=== PATIENT | male | born 1980 | race Caucasian/White ===

== ENCOUNTER 2021-03-05 06:21 | Inpatient (IN) ==
--- NOTE | 2021-03-04 12:17 | Anesthesiology Consultation ---
Date of Service March 04, 2021 Assessment & Plan (1) Encounter for pre-operative examination: Chart Review Chart Review: Acceptable Risk for Surgery and Patient NOT seen in Pre Admission Testing Per nursing assessment 03/04/21, patient denies any recent travel. No known Covid positive contacts or Covid related symptoms. No known Covid infection in the past 90 days. Covid test 03/03/21= negative History Surgery Operation Date: 03/05/21 07:45 Proposed Procedures p C5 Corpectomy, Spinal Cord Monitoring - Yang Vazquez DO Height/Weight Height: 5 ft 6 in Weight: 70.307 kg Allergies Allergy/AdvReac Type Severity Reaction Status Date / Time No Known Allergies Allergy Unverified 03/04/21 10:48 Medications Home Medications Medication Instructions Recorded Confirmed Last Taken calcium carbonate [Tums] 200 mg PO BID PRN 03/04/21 03/04/21 Unknown cholecalciferol (vitamin D3) 250 mcg PO QAM 03/04/21 03/04/21 Unknown [Vitamin D3] cyclobenzaprine 5 mg PO TID PRN 03/04/21 03/04/21 Unknown gabapentin 300 mg PO QID 03/04/21 03/04/21 Unknown naproxen 500 mg PO BID PRN 03/04/21 03/04/21 Unknown tadalafil 5 mg PO DAILY PRN 03/04/21 03/04/21 Unknown Past Medical History Medical History Acid reflux ADHD Anxiety due to invasive procedure Cervical disc disorder with radiculopathy Degenerative disc disease History of kidney stones History of migraine Spinal stenosis Transverse myelitis Urinary urgency Past Family History Family History Other Adopted Past Surgical History Surgical History History of carpal tunnel surgery of right wrist History of right inguinal hernia repair History of wisdom tooth extraction Social History Smoking Status: Current every day smoker tobacco type: e-cigarettes Do You Dip or Chew Tobacco: No Smoking End Date: quit cigs 3-4 years ago Hx Alcohol Use: Yes Alcohol type: beer alcohol intake frequency: holidays/special occasions only Hx Substance Use: Yes substance use type: marijuana Substance Use Type Other:: medical marijuana Last Used Substance: Hours (ago) Last Used Substance Other:: smokes mult x daily Lab Results Anesthesia Preop Results Results Anesthesia Widget: WBC 6.87 K/uL (4.8-10.8) 03/03/21 Hgb 14.9 g/dL (14.0-18.0) 03/03/21 Hct 42.2 % (42-52) 03/03/21 Plt 252 K/uL (130-400) 03/03/21 Na 139 mmol/L (136-145) 03/03/21 K 4.1 mmol/L (3.5-5.1) 03/03/21 Cl 108 mmol/L (98-107) H 03/03/21 CO2 26 mmol/L (21-32) 03/03/21 BUN 15 mg/dl (7-18) 03/03/21 Creat 0.90 mg/dl (0.6-1.4) 03/03/21 Glucose Level 105 mg/dl (70-99) H 03/03/21 PT 9.8 Seconds (9.0-12.0) 03/03/21 INR 1.0 (0.9-1.1) 03/03/21 Urine Color Yellow 03/03/21 Urine Appearance Clear (Clear) 03/03/21 Urine pH 5.0 (4.5-7.5) 03/03/21 Urine Specific [place] 1.024 (1.000-1.030) 03/03/21 Urine Protein Negative (Negative) 03/03/21 Urine Glucose (UA) Negative (Negative) 03/03/21 Urine Ketones Negative (Negative) 03/03/21 Urine Blood Trace (Negative) H 03/03/21 Urine Nitrite Negative (Negative) 03/03/21 Urine Bilirubin Negative (Negative) 03/03/21 Urine Urobilinogen Negative (Negative) 03/03/21 Urine Leukocyte Esterase Negative (Negative) 03/03/21 Urine WBC (Auto) 0 /hpf (0-5) 03/03/21 Urine RBC (Auto) 0-4 /hpf (0-4) 03/03/21 Urine Hyaline Casts (Auto) 0 /lpf (0-5) 03/03/21 Urine Epithelial Cells (Auto) 0-5 /lpf (0-5) 03/03/21 Urine Bacteria (Auto) Negative (Negative) 03/03/21 Testing Electrocardiogram Date: 03/03/21 Findings: + NSR @ (74bpm) Normal EKG. Chest X-Ray Date: 03/03/21 Findings: + NAD
[~2021-03-05 06:21] MED LIST: ACETAMINOPHEN 500 MG TAB PO SCH; CeleBREX 200 MG CAP PO SCH; GABAPENTIN 900 MG DOSE PO SCH; LR 15ML/HR IV SCH; ceFAZolin 1000MG 1,000 MG/7.5 ML SYR IV SCH
[2021-03-05] MEDS ORDERED: ONDANSETRON INJ 2 MG/ML 2 ML VIAL ONE (06:55)
[2021-03-05] MEDS ORDERED: fentaNYL citrate 100 MCG/2 ML VIAL ONE (06:55)
[2021-03-05] MEDS ORDERED: GLYCOPYRROLATE 0.2 MG/ML VIAL ONE (06:55)
[2021-03-05] MEDS ORDERED: NEOSTIGMINE METHYLSULFATE 1 MG/ML 10ML VIAL ONE (06:55)
[2021-03-05] MEDS ORDERED: DEXAMETHASONE SOD INJ 4 MG/ML VIAL ONE (06:55)
[2021-03-05] MEDS ORDERED: PROPOFOL IV EMULSION 10 MG/ML 20 ML VIAL IV ONE ×2 (06:55→07:32)
[2021-03-05] MEDS ORDERED: LIDOCAINE HCL 2% 2 ML VIAL/AMP(20MG/ML) INFIL ONE (06:55)
[2021-03-05] MEDS ORDERED: MIDAZOLAM HCL 1 MG/ML 2ML VIAL ONE (06:55)
[2021-03-05] MEDS ORDERED: ROCURONIUM BROMIDE 10 MG/ML 5 ML VIAL IV ONE (06:55)
[2021-03-05] MEDS ORDERED: HYDROmorphone INJ 2 MG/ML SYR/VIAL ONE (07:01)
--- NOTE | 2021-03-05 07:33 | History & Physical Bridge Note ---
Date of Service March 05, 2021 History & Physical Bridge Note I have examined the patient, reviewed the History & Physical and in the interval since the performance of the History & Physical I have noted the following changes of clinical significance: no changes noted
--- NOTE | 2021-03-05 07:34 | History & Physical Report ---
Date of Service March 05, 2021 Assessment & Plan (1) Myelopathy concurrent with and due to spinal stenosis of cervical region: Admission and Anticipated Discharge Date Admission Date: C5 corpectomy History of Present Illness Chief Complaint: Neck and arm pain and weakness Primary Care Provider: Rashad Jasso MD This is a 40-year-old male who presents with progressive cervical myelopathy and is here for surgical invention. Allergies Allergy/AdvReac Type Severity Reaction Status Date / Time No Known Allergies Allergy Verified 03/05/21 06:31 Home Medications Medication Instructions Recorded Confirmed Type calcium carbonate [Tums] 200 mg PO BID PRN 03/04/21 03/05/21 History cholecalciferol (vitamin D3) 250 mcg PO QAM 03/04/21 03/05/21 History [Vitamin D3] cyclobenzaprine 5 mg PO TID PRN 03/04/21 03/05/21 History gabapentin 300 mg PO QID 03/04/21 03/05/21 History naproxen 500 mg PO BID PRN 03/04/21 03/05/21 History tadalafil 5 mg PO DAILY PRN 03/04/21 03/05/21 History Past Med/Surg History Medical History Acid reflux ADHD Anxiety due to invasive procedure Cervical disc disorder with radiculopathy Degenerative disc disease History of kidney stones History of migraine Spinal stenosis Transverse myelitis Urinary urgency Surgical History History of carpal tunnel surgery of right wrist History of right inguinal hernia repair History of wisdom tooth extraction Family History Other Adopted Social History Smoking Status: Current every day smoker Smoking End Date: quit cigs 3-4 years ago; Second Hand Exposure: Yes (hx); Do You Dip or Chew Tobacco: No; Tobacco Cessation Education Requested by Patient: No Hx Alcohol Use: Yes Alcohol type: beer Hx Substance Use: Yes Last Used Substance: Hours (ago) Last Used Substance Other:: smokes mult x daily Substance Use Type Other:: medical marijuana Preferred Language: Italian Communication Ability: Effective Geographic Information Systems Analyst Required: No Beliefs That Will Affect Care: None Current Living Situation: Significant Other Feels Safe at Home: Yes Safety Concerns: Feels Safe At This Time Assistive Devices: None Physical Exam Physical Exam: Patient is alert and oriented Heart regular in rhythm Lungs clear to auscultation Results & Data ([facility]) Vital Signs (Past 12 Hours) Vital Signs Temp Pulse Resp BP Pulse Ox 03/05/21 06:30 36.9 C 78 18 109/81 98
[2021-03-05] MEDS ORDERED: BACITRACIN INJ 50,000 UNIT VIAL ONE (07:36)
[2021-03-05] MEDS ORDERED: HYDROmorphone INJ 1 MG/ML SYRINGE IV PRN ×2 (08:46→11:32)
[2021-03-05] MEDS ORDERED: ePHEDrine sulfate 50 MG/ML AMP IV PRN (08:46)
[2021-03-05] MEDS ORDERED: ATROPINE SULFATE 0.1 MG/ML 10ML SYR IV PRN (08:46)
[2021-03-05] MEDS ORDERED: ONDANSETRON INJ 2 MG/ML 2 ML VIAL IV PRN ×2 (08:46→11:32)
[2021-03-05] MEDS ORDERED: FLOSEAL HEMOSTATIC MATRIX 10ML TOP ONE (09:42)
--- NOTE | 2021-03-05 09:46 | Operative Report ---
Post Operative Report Pre & Post Diagnosis Operation Date: 03/05/21 07:45 Pre-Op Diagnosis: Cervical spinal stenosis with nucleus pulposus and myeloradiculopathy Post-Op Diagnosis: Same I identified the patient and participated in the time-out.: Yes Procedure Operation Date: 03/05/21 07:45 Actual Procedures #1 anterior cervical corpectomy of C5 including bilateral foraminotomies. #2 anterior cervical arthrodesis C4-C6. #3 placement of 21 mm peek cage C4-C6. #4 placement locally harvested morselized autograft combined with I factor in the interbody cage. #5 application 5 complete and screws from C4-C6. Surgeon Yang Vazquez, Cash Sales Audit Clerk Chava Elias Estimated Blood Loss 20 Findings Consistent with Post-Op Diagnosis Specimens None Indications This is a 40-year-old male who presents with marked decline in status evidence of myeloradiculopathy is here for urgent decompression and fusion. Description of Procedure Patient was met with identified informed consent obtained. Patient was then taken to the operative suite underwent a patient placed in supine position injectable head An headline writer. All bony prominences well-padded eyes inspected to ensure no external pressure placed upon the bed at this point the anterior cervical spine was prepped and draped in normal sterile fashion. The assistance of fluoroscopy identified the C5 vertebral body and a transverse incision was placed along the right anterior aspect of the cervical spine overlying this region. Sharp dissection with the assistance of bipolar electrocautery was performed down to and exposing anterior cervical spine from C4-C6. Self-retaining retractors placed. I then performed a complete discectomy of C4-C5 and C5-C6 out to the uncovertebral joints bilaterally. [place] is distracting pins were then placed in C4 and C6 to distract across the C5 vertebral body. It was then removed in its entirety including removal of all posterior annular fibers longitudinal ligament bilateral foraminotomies performed. Obvious mass amount of disc material were noted to be within the can al. After complete removal and decompression endplates were burred to subcortical being bone and a 21 mm peek cage filled with locally harvested morselized autograft and I factor tapped in position. Distracting apparatus was removed. A 5 complete screws applied with the assistance of fluoroscopy. The incision was then copiously irrigated explored to ensure no damage to surrounding structures or remaining bleeding. 10 round KP drain inserted. It was then closed with 2 Vicryl in a fashion of 4 Monocryl for final skin closure. Steri-Strip sterile dressings placed. Patient waken taken to PACU stable condition. Please note spinal cord monitoring was utilized at the procedure no changes noted. Lastly Chava Elias was present at the entire surgery involved the patient positioning complex portions of the surgery and final skin closure. I attest to the content of the Intraoperative Record and any orders documented therein. Any exceptions are noted below.
--- NOTE | 2021-03-05 10:06 | Fluoroscopy Report ---
FL cervical 2-3V CLINICAL HISTORY: C5 CORPECTOMY COMPARISON STUDY: None. FLUOROSCOPY TIME: 9 seconds. FLUOROSCOPIC IMAGES: 2 FINDINGS: Fluoroscopy was provided during C5 corpectomy and C4-C6 anterior discectomy and fusion. Ellie gical drain is in place. Endotracheal tube is partially imaged. IMPRESSION: Fluoroscopy provided during C5 corpectomy and C4-C6 anterior discectomy and fusion. ACT 112: Negative or not required by law. Electronically signed by: Alex Gerber M.D. 03/05/2021 10:05 AM
[2021-03-05] MEDS: fentaNYL citrate 100 MCG/2 ML VIAL IV PRN ×2 (10:31→10:45)
[2021-03-05] MEDS ORDERED: dexAMETHasone 8 MG in SYRINGE 0 ML IV PRN (11:32)
[2021-03-05] MEDS ORDERED: ACETAMINOPHEN 1,000 MG/100 ML VIAL IV PRN (11:32)
[2021-03-05] MEDS ORDERED: HYDROmorphone INJ 0.5 MG/0.5 ML SYR IV PRN (11:32)
[2021-03-05] MEDS ORDERED: NALOXONE HCL 0.4 MG/1 ML VIAL/CARP IV PRN (11:32)
[2021-03-05] MEDS ORDERED: traMADol HCL 50 MG TABLET PO PRN (11:32)
[2021-03-05] MEDS ORDERED: DO NOT ADMINISTER FLU VACCINE PRN (11:32)
[2021-03-05] MEDS ORDERED: MAGNESIUM HYDROXIDE SUSP 30 ML UDC PO PRN (11:32)
[2021-03-05] MEDS ORDERED: PROMETHAZINE HCL 12.5 MG in SODIUM CHLORIDE 0.9% 50 ML IV PRN (11:32)
[2021-03-05] MEDS ORDERED: DO NOT ADMINISTER PNEUMOCOCCAL VACCINE PRN (11:32)
[2021-03-05] MEDS ORDERED: ACETAMINOPHEN 500 MG TAB PO PRN (11:32)
[2021-03-05] MEDS ORDERED: FAMOTIDINE 20 MG TAB PO PRN (11:32)
[2021-03-05] MEDS ORDERED: ONDANSETRON 4 MG OD TAB PO PRN (11:32)
[2021-03-05] MEDS ORDERED: METOCLOPRAMIDE HCL INJ 5 MG/ML 2 ML VIAL IV PRN (11:32)
[2021-03-05] MEDS ORDERED: hydrOXYzine HCl 25 MG TAB PO PRN (11:32)
[2021-03-05] MEDS ORDERED: CYCLOBENZAPRINE HCL 5 MG TAB PO PRN (11:32)
[2021-03-05] MEDS ORDERED: CALCIUM CARBONATE 500 MG CHEWABLE TAB PO PRN (11:32)
[2021-03-05] MEDS ORDERED: ALUMINUM/MAGNESIUM SUSP 30 ML UDC PO PRN (11:32)
[2021-03-05] MEDS ORDERED: LORazepam 0.5 MG/1 ML VIAL IV PRN (11:32)
[2021-03-05] MEDS ORDERED: RACEPINEPHRINE 2.25% NEBU SOLN 0.5 ML VIAL INH PRN (11:32)
[2021-03-05] MEDS ORDERED: SOD PHOSPHATE/SOD BIPHOSPHATE ENEMA 132 ML BTL PR PRN (11:32)
[2021-03-05] MEDS ORDERED: diphenhydrAMINE Capsule 25 MG CAP PO PRN (11:32)
[2021-03-05] MEDS ORDERED: LORazepam 0.5 MG TAB PO PRN (11:32)
--- NOTE | 2021-03-05 12:32 | Anesthesiology Progress Note ---
Date of Service March 05, 2021 Anesthesia Post Procedure Vital Signs Vital Signs: Temp Pulse Pulse Resp BP BP Pulse Ox 03/05/21 11:32 76 16 96 03/05/21 11:05 36.6 C 56 L 12 120/67 95 03/05/21 10:55 56 L 18 117/78 96 03/05/21 10:45 36.3 C L 61 19 121/75 97 03/05/21 10:35 58 L 12 119/78 96 03/05/21 10:25 66 20 125/82 94 03/05/21 10:15 68 18 115/80 95 03/05/21 10:08 36.2 C L 73 16 116/77 96 03/05/21 06:30 36.9 C 78 18 109/81 98 Pain Intensity Posterior Neck: Pain Intensity: 3 Transfer of Care Handoff Completed per policy Notes Mental Status: alert / awake / arousable and participated in evaluation Patient Amnestic to Procedure: Yes Nausea / Vomiting: adequately controlled Pain: adequately controlled Airway Patency, RR, SpO2: stable & adequate BP & HR: stable & adequate Hydration State: stable & adequate Anesthetic Complications: no major complications apparent and Pt Satisfied with anesthetic care
[2021-03-05] MEDS: LACTATED RINGER'S 1,000 ML IV SCH ×2 (12:37→22:21)
[2021-03-05] MEDS: GABAPENTIN 300 MG CAP PO SCH ×3 (12:37→22:22)
[2021-03-05] MEDS: ceFAZolin 1000MG 1,000 MG/7.5 ML SYR IV SCH (15:35)
[2021-03-05] MEDS: oxyCODONE HCL IR 5 MG TAB (IMMEDIATE RELEASE) PO PRN ×2 (17:54→22:21)
[2021-03-05] MEDS ORDERED: DOCUSATE SODIUM/SENNA 50/8.6MG TAB PO SCH (21:00)
[2021-03-06] MEDS: ceFAZolin 1000MG 1,000 MG/7.5 ML SYR IV SCH (00:15)
[2021-03-06] MEDS ORDERED: POLYETHYLENE (MIRALAX) 17 GM PACK PO SCH (06:00)
[2021-03-06] MEDS ORDERED: dexAMETHasone 6 MG in SYRINGE 0 ML IV SCH (09:00)
[2021-03-06] MEDS: GABAPENTIN 300 MG CAP PO SCH (09:10)
--- NOTE | 2021-03-06 10:28 | Discharge Summary ---
Date of Service March 06, 2021 Admission HPI Per Admitting Provider This is a 40-year-old male who presents with progressive cervical myelopathy and is here for surgical invention. Principal Diagnosis Cervical stenosis with myeloradiculopathy Discharge Data Allergies Allergy/AdvReac Type Severity Reaction Status Date / Time No Known Allergies Allergy Verified 03/05/21 06:31 Procedures Performed Operation Date: 03/05/21 07:45 Actual Procedures p C5 Corpectomy, Spinal Cord Monitoring(Not Applicable) - Yang Vazquez DO Ordered Studies 03/05/21 07:45 [place] cervical 2-3V Routine Hospital Course (1) Myelopathy concurrent with and due to spinal stenosis of cervical region: Patient went anterior cervical corpectomy of C5 tolerated well second orthopedic for postop labor postop and running swallowing well no hoarseness. KP drain decreasing probably. Strength markedly improved in bilateral upper and lower extremities. Ambulating halls well. Pain well controlled. Subsequently discharged home. Discharge orders instructions from the chart for further review. Total Time Total Time Spent Total Time Spent (In Minutes): 20 minutes Discharge Plan Discharge Items Patient Disposition: Home - Self-Care Reason For Visit: Disease of Spinal Cord Discharge Diagnosis: Cervical spinal stenosis with myeloradiculopathy Activity: As commented below Non-emergency contact: Primary Care Provider Call non-emergency contact if: you have any medication questions Follow-up/Referrals: Rashad Jasso MD [Primary Care Provider] - Diet: Regular Addtl Attending Provider Instructions: ACTIVITY RECOMMENDATIONS: SELF CARE INSTRUCTIONS AFTER CERVICAL FUSIONS 1. No smoking. Smoking drastically decreases the chance of a solid fusion. 2. No bending, lifting more than 5 pounds, or twisting (roll like a log when turning in bed). 3. You may shower 3 days after surgery. Thoroughly dry wound. Do not soak in the tub. 4. Cervical collar: Must be worn at all times including sleeping. You may remove the brace only to bath, eat and if you are sitting in a recliner. 5. Please walk as much as you can for exercise. Gradually increase the distance that you walk as your endurance increases. SPECIAL CARE INSTRUCTIONS: VERY IMPORTANT TO READ AND REVIEW A. Do not take any anti-inflammatory medications (i.e. Indocin, Advil, Aspirin, Naprosyn, Aleve, Motrin, etc.) as these may inhibit the chance of a solid fusion. Tylenol is okay to take. B. Your surgical incision has been closed with a cosmetic suture under the skin that will dissolve in about 6 weeks. In 14 days, you can use a pair of clean scissors and cut the suture that is left outside of the skin at the ends of your incision. C. Complications are uncommon, but please contact us if you have any signs or symptoms of: 1. wound infection (fever higher than 102.5 degrees F, redness, separation of wound, drainage, or increasing pain from the incision) 2. blood clots in legs (pain, swelling, redness and warmth in legs) 3. urinary tract infection (fever higher than 102.5 degrees, burning upon urination or increased frequency of urination) 4. nerve problems (inability to walk on your toes or heels, numbness, loss of bowel or bladder control) 5. any other symptoms that concern you. D. Please call the office at if you have any concerns or questio ns about your operation or recovery. MANAGING PAIN AFTER SPINAL SURGERY 1. Narcotic medication is intended for short-term use and will be provided for surgical pain. Surgical pain usually lasts for a period of 4-6 weeks. Narcotic medication includes Percocet, Vicodin, Darvocet, Tylenol #3 or Lortab. 2. Longer-term pain is more appropriately treated with non-narcotic medication such as Tylenol ES. 3. Muscle spasm is not appropriately treated with narcotics. Muscle relaxers such as Soma, Flexeril or Skelaxin can be used along with Tylenol ES. 4. Remember that we all live with some "aches and pains". This is not unusual or uncommon after an injury or as we get older. 5. We will provide appropriate medication within the normal guidelines of their prescribed use. We will also be very cautious and aware of potential abuse and extended duration of patients' medication needs. 6. Please allow 2-3 days to process refills. Prescriptions will not be mailed but must be picked up at the office. FOLLOW UP VISIT: Keep your scheduled follow-up appointment. Any questions, please call the office at . Pending Studies at Discharge: No Stand-Alone Forms: My [place], Smoking Cessation Medications and OR Order Prescriptions: New oxycodone 5 mg tablet 5 mg PO Q6H PRN (Reason: pain, severe) Qty: 20 RF: 0 tramadol 50 mg tablet 50 mg PO Q6H PRN (Reason: pain, moderate) Qty: 20 RF: 0 Continued cyclobenzaprine 5 mg Tablet 5 mg PO TID PRN (Reason: Muscle Spasm) RF: 0 tadalafil 5 mg Tablet 5 mg PO DAILY PRN (Reason: ud) RF: 0 gabapentin 300 mg Tablet 300 mg PO QID RF: 0 cholecalciferol (vitamin D3) [Vitamin D3] 125 mcg (5,000 unit) Tablet 250 mcg PO QAM RF: 0 calcium carbonate [Tums] 200 mg calcium (500 mg) Tablet,Chewable 200 mg PO BID PRN (Reason: Acid Reflux) RF: 0 Discontinued naproxen 500 mg Tablet 500 mg PO BID PRN (Reason: Pain) RF: 0 Discharge Orders: Discharge Order (Routine); Ordered 03/06/21 Ordered By: Yang Vazquez Admission Data Admit Date/Time: 03/05/21 10:25 Attending Provider: Yang Vazquez Admit Provider: Yang Vazquez Primary Care Provider: Rashad Jasso
[2021-03-07] MEDS ORDERED: bisacodyL 10 MG SUPP PR PRN (09:47)
== END 2021-03-06 11:44 | disposition home or self-care (01) | DRG 520 ==
LOC: ASU 06:21 → 3E 10:25